=== PATIENT | male | born 1975 | race Asian ===

== ENCOUNTER 2016-06-08 19:48 | Emergency (ER) | payer SELFPAY ==
[2016-06-08 21:42] VITALS: BP 117/79
== END 2016-06-08 21:42 | disposition home or self-care (01) ==
LOC: ED 19:48
DX: R07.89 Other chest pain (principal); V89.2XXA Person injured in unspecified motor-vehicle accident, traffic, initial encounter; Y93.89 Activity, other specified; Y92.89 Other specified places as the place of occurrence of the external cause; Y99.8 Other external cause status
CPT/HCPCS: J1885